=== PATIENT | female | born 1970 | race Caucasian/White ===

== ENCOUNTER → 2020-12-13 14:53 | Outpatient (CLI) | payer BC, SELFPAY ==
--- NOTE | ~2020-12-13 | MM_ITS ---
EXAMINATION: MM screening [facility] BI w arthur HISTORY: Screening mammogram TECHNIQUE: Craniocaudal and mediolateral oblique 3-D tomosynthesis images were obtained and synthetic 2-D images were generated. CAD analysis was submitted and interpreted. COMPARISON: 09/15/2015, 04/22/2014, 04/08/2014 BREAST PARENCHYMAL COMPOSITION: The breasts are heterogeneously dense, which may obscure small masses . FINDINGS: There is no evidence of suspicious mass, calcification, or architectural distortion to sugg est malignancy in either breast. There has been no suspicious interval change. IMPRESSION: 1. No mammographic evidence of malignancy. 2. Recommend routine screening mammography in one year. BI-RADS Category 1: Negative Reviewed, dictated and finalized at location A.
== END ==
PROVIDERS: Visit Provider Obstetrics & Gynecology
DX: Z12.31 Encounter for screening mammogram for malignant neoplasm of breast (principal)
CPT/HCPCS: 77063; 77067

== ENCOUNTER → 2023-06-25 14:24 | Outpatient (CLI) | payer BC, SELFPAY ==
--- NOTE | ~2023-06-25 | MM_ITS ---
EXAMINATION: MM screening [facility] BI w arthur HISTORY: Screening mammogram TECHNIQUE: Craniocaudal and mediolateral oblique 3-D tomosynthesis images were obtained and synthetic 2-D images were generated. CAD analysis was submitted and interpreted. COMPARISON: 12/13/2020, 09/15/2015, 04/22/2014, 04/08/2014 BREAST PARENCHYMAL COMPOSITION: The breasts are heterogeneously dense, which may obscure small masses . FINDINGS: RIGHT BREAST: An asymmetry is present in the posterior third of the breast in line with the nipple ax is on the craniocaudal view. LEFT BREAST: No suspicious mass, calcification, or architectural distortion are identified to suggest malignancy. There has been no suspicious interval change. IMPRESSION: 1. Right breast asymmetry. 2. Additional mammographic views and possible breast ultrasound are recommended. BI-RADS Category 0: Incomplete: Needs additional imaging evaluation. Reviewed, dictated and finalized at location A. [employer] IMPRESSION: 1. Right breast asymmetry. 2. Additional mammographic views and possible breast ultrasound are recommended . BI-RADS Category 0: Incomplete: Needs additional imaging evaluation.
== END ==
PROVIDERS: PCP Obstetrics & Gynecology; Visit Provider Obstetrics & Gynecology
DX: Z12.31 Encounter for screening mammogram for malignant neoplasm of breast (principal); N64.89 Other specified disorders of breast
CPT/HCPCS: 77063; 77067

== ENCOUNTER 2023-07-09 00:57 | Day surgery (SDC) | payer BC, SELFPAY ==
[2023-06-11 10:08] VITALS: BMI 22.0
--- NOTE | 2023-07-06 08:34 | SUR.PREOP ---
Patient called regarding upcoming procedure. Reviewed preop instructions, appointment times, and procedure prep.
--- NOTE | 2023-07-06 14:44 | PM.HPGS ---
History of Present Illness History of Present Illness Consent: Risks, benefits, and alternatives have been discussed and questions answered. Patient agrees to proceed with procedure. Chief complaint: neoplasm screening Narrative: Beatris Quintana is a 52 year old female Referred for colon cancer screening. Review of Systems Review of Systems: All systems reviewed & are unremarkable except as noted in HPI and below PMFSH Past Medical History Medical History Dyslipidemia Migraine Vertigo Vitamin D deficiency Surgical History Surgical History Delivery by section History of dental surgery Gums S/P breast lumpectomy Family History Family History Father Diabetes mellitus Hypertension Heart disease Cerebrovascular accident Mother Hypertension Heart disease Sibling Hypertension Grandparent Liver cancer Diabetes mellitus Hypertension Heart disease Thyroid disease Social History Social History Smoking status: Never smoker Alcohol intake: current Drinks per week: 3 Alcohol use details: Wine Substance use: never Substance use type: does not use Lack of Transportation: No Lack of Food: Never True Current Housing: I Have Housing Concerned About Future Housing: No Difficulty Paying Gas/Electric Bills: No Difficulty Paying for Meds: No Currently Unemployed: No Education: Master's Degree or Higher Difficulty w/ Childcare or Family Care: No Living arrangements: other Additional living arrangements comments: with sp Occupation/Education: occupation 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 Gender identity (if verbalized by the patient): Female Meds Home Medications and Allergies Home Medications Medication Instructions Recorded Confirmed Type B Complex 1 tablet BYMOUTH 1XD 05/07/23 06/11/23 History Curamed 1 tablet BYMOUTH 1XD 05/07/23 06/11/23 History cholecalciferol (vitamin D3) 125 125 mcg PO DAILY 05/07/23 06/11/23 History mcg (5,000 unit) capsule ibuprofen 200 mg capsule 200 mg PO Q6H PRN Pain 05/07/23 06/11/23 History magnesium oxide 200 mg PO DAILY 05/07/23 06/11/23 History meclizine 25 mg tablet 25 mg PO TID PRN dizziness #10 tabs 05/07/23 06/11/23 Rx norethindrone 1 mg-ethinyl 1 tablet PO DAILY 05/07/23 06/11/23 History estradiol 20 mcg (21)-iron 75 mg (7) tablet (Blisovi Fe 06/23 (28)) Quercetin 200 mg BYMOUTH 1XD 05/08/23 06/11/23 History atorvastatin 20 mg tablet (Lipitor) 20 mg PO QHS #90 tabs 05/15/23 06/11/23 Rx Allergies Allergy/AdvReac Type Severity Reaction Status Date / Time Penicillins Allergy Severe EXTREME Verified 07/09/23 08:40 HIVES amitriptyline AdvReac Weight Verified 07/09/23 08:40 gain, bloating, rosacea flare Exam Const: General: alert Orientation/consciousness: patient oriented x3 Resp: Auscultation: clear to auscultation bilaterally Cardio: Rhythm: regular rhythm GI: GI Palp: Yes Soft to palpation and No Tenderness to palpation present (GI) Neuro: General: patient oriented x3 Assessment and Plan Assessment and plan (1) Colon cancer screening: Code(s): Z12.11 - Encounter for screening for malignant neoplasm of colon Status: Acute Assessment and Plan: Colonoscopy with possible biopsy or polypectomy or cautery or injection of substances.
[2023-07-09 08:41] VITALS: BP 120/71; PULSE 77; RESP 18; TEMP 36.8; O2SAT 100
--- NOTE | 2023-07-09 08:47 | WPDANESEPPF ---
Anes - Initial Pre Proc Eval Procedure: Operation Date: 07/09/23 10:00 Proposed Procedures p Screening Colonoscopy - Kwasi Ornelas MD Date/Time: 07/09/23 08:47 Surgeon: Kwasi Ornelas MD Pre Op Diagnosis: neoplasm screening Patient Data Age: 52 Gender: F Height: 1.65 m Weight: 60.4 kg Last Vital Signs Temp 98.3 F 07/09/23 08:41 Pulse 77 07/09/23 08:41 Resp 18 07/09/23 08:41 BP 120/71 07/09/23 08:41 Pulse Ox 100 07/09/23 08:41 O2 Del Method Room Air 07/09/23 08:41 Allergies Allergy/AdvReac Type Severity Reaction Status Date / Time Penicillins Allergy Severe EXTREME Verified 07/09/23 08:40 HIVES amitriptyline AdvReac Weight Verified 07/09/23 08:40 gain, bloating, rosacea flare Home Medications Medication Instructions Recorded Confirmed Type B Complex 1 tablet BYMOUTH 1XD 05/07/23 06/11/23 History Curamed 1 tablet BYMOUTH 1XD 05/07/23 06/11/23 History cholecalciferol (vitamin D3) 125 125 mcg PO DAILY 05/07/23 06/11/23 History mcg (5,000 unit) capsule ibuprofen 200 mg capsule 200 mg PO Q6H PRN Pain 05/07/23 06/11/23 History magnesium oxide 200 mg PO DAILY 05/07/23 06/11/23 History meclizine 25 mg tablet 25 mg PO TID PRN dizziness #10 tabs 05/07/23 06/11/23 Rx norethindrone 1 mg-ethinyl 1 tablet PO DAILY 05/07/23 06/11/23 History estradiol 20 mcg (21)-iron 75 mg (7) tablet (Blisovi Fe 06/23 (28)) Quercetin 200 mg BYMOUTH 1XD 05/08/23 06/11/23 History atorvastatin 20 mg tablet (Lipitor) 20 mg PO QHS #90 tabs 05/15/23 06/11/23 Rx Patient hx anesthesia problems: none Family hx anesthesia problems: none Results Review: All pre-operative results and documents have been reviewed as part of the pre-operative evaluation. [facility] Past Medical History Medical History (Updated 07/06/23 @ 14:44 by Kwasi Ornelas MD) Dyslipidemia Migraine Vertigo Vitamin D deficiency Surgical History Surgical History (Updated 05/07/23 @ 09:16 by Hilda Marte MA) Delivery by section History of dental surgery Gums S/P breast lumpectomy Family History Family History (Updated 05/07/23 @ 14:53 by Hilda Marte MA) Father Diabetes mellitus Hypertension Heart disease Cerebrovascular accident Mother Hypertension Heart disease Sibling Hypertension Grandparent Liver cancer Diabetes mellitus Hypertension Heart disease Thyroid disease Social History Social History (Updated 05/07/23 @ 10:23 by Hilda Marte MA) Smoking status: Never smoker Alcohol intake: current Drinks per week: 3 Alcohol use details: Wine Substance use: never Substance use type: does not use Lack of Transportation: No Lack of Food: Never True Current Housing: I Have Housing Concerned About Future Housing: No Difficulty Paying Gas/Electric Bills: No Difficulty Paying for Meds: No Currently Unemployed: No Education: Master's Degree or Higher Difficulty w/ Childcare or Family Care: No Living arrangements: other Additional living arrangements comments: with sp Occupation/Education: occupation 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 Informed Consent: The patient's anesthetic plan and its attendant risks and benefits were discussed with the patient/family/POA. Questions were solicited and answers provided to the satisfaction of the patient/f
[2023-07-09] MEDS: LACTATED RINGERS 1,000 ML 150 ML IV CONT (08:51)
[2023-07-09] MEDS: SIMETHICONE ORAL SUSPENSION 20 MG/0.3 ML 30 ML BOTTLE 0.6 ML IRRIGATION (09:07)
[2023-07-09 09:14] VITALS: BP 100/65; PULSE 81; RESP 23; O2SAT 99
[2023-07-09 09:36] VITALS: BP 124/89; PULSE 90; RESP 16; O2SAT 100
== END 2023-07-09 09:43 | disposition home or self-care (01) ==
PROVIDERS: PCP Physician Assistant Medical; Visit Provider Internal Medicine Gastroenterology
PROC: 0DJD8ZZ Inspection of Lower Intestinal Tract, Via Natural or Artificial Opening Endoscopic (ICD-10-PCS; CPT 45378; principal; 2023-07-09 10:00)
DX: Z12.11 Encounter for screening for malignant neoplasm of colon (principal); E78.5 Hyperlipidemia, unspecified; E55.9 Vitamin D deficiency, unspecified; Z98.890 Other specified postprocedural states; Z82.49 Family history of ischemic heart disease and other diseases of the circulatory system; Z80.0 Family history of malignant neoplasm of digestive organs
CPT/HCPCS: 45378; J2704; J7120

== ENCOUNTER → 2023-07-23 08:41 | Outpatient (CLI) | payer BC, SELFPAY ==
--- NOTE | ~2023-07-23 | MMUS_ITS ---
EXAMINATION: MM diagnostic [facility] RT w arthur, US breast RT complete HISTORY: Right breast lumps. TECHNIQUE: Additional 3-D tomosynthesis images of the breasts were performed and synthetic 2-D images were generated. CAD analysis was submitted and interpreted. High resolution complete right breast ul trasound was performed. COMPARISON: Comparison to multiple prior studies sequentially, with oldest reviewed study dated 10/2013. BREAST PARENCHYMAL COMPOSITION: Dense: The breasts are extremely dense, which lowers the sensitivity of mammography. FINDINGS: MAMMOGRAPHIC FINDINGS: There are no suspicious masses, calcifications or architectural distortion in the right breast to sug gest malignancy. Focal asymmetry seen on prior CT examination is less apparent with spot compression views. ULTRASOUND: Complete US of all 4 quadrants of the right breast and retroareolar region was reviewed. At 12:00, 2 cm from the nipple, there is a 4 mm hypoechoic mass with antiparallel configuration, posterior shadow ing and no significant internal vascularity. At 9:00, 5 cm from the nipple, there is a 4 mm cyst. IMPRESSION: 1. Abnormal 4 mm hypoechoic mass of the right breast at 12:00, 2 cm from the nipple 2. Ultrasound-guided right breast biopsy recommended. BI-RADS category 4, suspicious findings. Reviewed, dictated and finalized at location A. CCU IMPRESSION: 1. Abnormal 4 mm hypoechoic mass of the right breast at 12:00, 2 cm from the ni pple 2. Ultrasound-guided right breast biopsy recommended. BI-RADS category 4, suspicious findings.
== END ==
PROVIDERS: PCP Obstetrics & Gynecology; Visit Provider Obstetrics & Gynecology
DX: R92.8 Other abnormal and inconclusive findings on diagnostic imaging of breast (principal)
CPT/HCPCS: 76641; 77061; 77065; G0279

== ENCOUNTER 2023-08-17 08:55 | Outpatient (CLI) | payer BC, SELFPAY ==
--- NOTE | ~2023-08-17 | US_ITS ---
Patient: Beatris Quintana Date of : 1970 US breast RT limited DATE: 08/17/2023 11:04 INDICATION: Patient presented for biopsy of 12:00 hypoechoic lesion 2 cm from nipple TECHNIQUE: Real-time imaging targeted at 12:00 was performed by the technologist initially and subsequently by Dr. Santana. COMPARISON: Most recent right breast ultrasound examination was reviewed. FINDINGS: No suspicious mass or shadowing, cyst or other significant finding is noted at 12:00. IMPRESSION: No abnormality noted at 12:00; six-month follow-up targeted ultrasound examination is recommended for confirmation. BI-RADS Category 3: Probably benign Reviewed, dictated and finalized at Location A. Reviewed, dictated and finalized at location A. MTDD IMPRESSION: No abnormality noted at 12:00; six-month follow-up targeted ultraso und examination is recommended for confirmation. BI-RADS Category 3: Probably benign
== END 2023-08-17 08:56 | disposition home or self-care (01) ==
PROVIDERS: PCP Obstetrics & Gynecology; Visit Provider Surgery
DX: N63.10 Unspecified lump in the right breast, unspecified quadrant (principal); R92.8 Other abnormal and inconclusive findings on diagnostic imaging of breast
CPT/HCPCS: 76642

== ENCOUNTER 2024-02-25 08:42 | Outpatient (CLI) | payer BC, SELFPAY ==
--- NOTE | ~2024-02-25 | US_ITS ---
US breast RT limited INDICATION: Six-month follow-up right breast abnormality. TECHNIQUE: Dedicated Limited right breast ultrasound COMPARISON: Comparison to multiple prior studies sequentially, with oldest reviewed study dated 07/23. BREAST DENSITY: [ Dense: The breasts are extremely dense, which lowers the sensitivity of mammography . ] FINDINGS: The right breast is/are composed of normal heterogeneous echotexture without focal solid or cystic mass. IMPRESSION: 1: Normal right breast ultrasound. Routine yearly screening mammogram and regular clinical breast examination are recommended. BI-RADS CATEGORY 1 - NEGATIVE Reviewed, dictated and finalized at location B.
== END 2024-02-25 08:43 | disposition home or self-care (01) ==
LOC: MICIMG 08:42
PROVIDERS: PCP Obstetrics & Gynecology; Visit Provider Obstetrics & Gynecology
DX: R92.8 Other abnormal and inconclusive findings on diagnostic imaging of breast (principal)
CPT/HCPCS: 76642

== ENCOUNTER 2024-06-30 09:50 | Outpatient (CLI) | payer BC, SELFPAY ==
--- NOTE | ~2024-06-30 | MM_ITS ---
EXAMINATION: MM screening [facility] w arthur HISTORY: Screening TECHNIQUE: Craniocaudal and mediolateral oblique 3-D tomosynthesis images were obtained and synthetic 2-D images were generated. CAD analysis was submitted and interpreted. COMPARISON: Comparison to multiple prior studies sequentially, with oldest reviewed study dated 09/14. BREAST PARENCHYMAL COMPOSITION: Dense: The breasts are heterogeneously dense, which may obscure small masses FINDINGS: There is no evidence of suspicious mass, calcification, or architectural distortion to sugg est malignancy in either breast. There has been no suspicious interval change. IMPRESSION: 1. No mammographic evidence of malignancy. 2. Recommend routine screening mammography in one year. BI-RADS Category 1: Negative Reviewed, dictated and finalized at location A. Y HOST
== END 2024-06-30 09:51 | disposition home or self-care (01) ==
PROVIDERS: PCP Physician Assistant Medical; Visit Provider Obstetrics & Gynecology
DX: Z12.31 Encounter for screening mammogram for malignant neoplasm of breast (principal)
CPT/HCPCS: 77063; 77067